=== PATIENT | female | born 1950 | race African-American/Black ===

== ENCOUNTER 2018-03-13 09:52 | Day surgery (SDC) | payer MEDICARE ==
[~2018-03-13 09:52] MED LIST: TETRACAINE 0.5% OD PRN
--- NOTE | 2018-03-13 10:33 | Anesthesia Day of Surgery ---
Anesthesia Day of Surgery - Day of Surgery Patient Examined: Yes Patient H&P Reviewed: Yes Patient is NPO: Yes Beta Blockers: Yes
--- NOTE | 2018-03-13 10:33 | Anesthesia Consultation ---
Anesthesia Consult and Med Hx Date of service: 03/13/18 - Airway Anesthetic Teeth Evaluation: Poor, Dentures ROM Head & Neck: Adequate Mental/Hyoid Distance: Adequate Mallampati Class: Class II Intubation Access Assessment: Probably Good - Pulmonary Exam CTA: Yes - Cardiac Exam Cardiac Exam: RRR - Pre-Operative Health Status ASA Pre-Surgery Classification: ASA2 Proposed Anesthetic Plan: MAC - Pulmonary Hx Smoking: No Hx Asthma: No Hx Respiratory Symptoms: No SOB: No - Cardiovascular System Hx Hypertension: Yes - Central Nervous System Hx Seizures: No CVA: No - Endocrine Hx Renal Disease: No - Other Systems Hx Alcohol Use: No Hx Cancer: No
[2018-03-13] MEDS: VIGAMOX OD SCH ×3 (10:37→10:51)
[2018-03-13] MEDS: AK-Dilate OD SCH ×3 (10:38→10:51)
[2018-03-13] MEDS: MYDRIACYL OD SCH ×3 (10:38→10:51)
[2018-03-13] MEDS ORDERED: VERSED ONE (11:19)
--- NOTE | 2018-03-13 11:40 | Operative Report ---
Operative Report Operative Report: PATIENT'S NAME: DATE OF : DATE OF SURGERY: 03/13/2018 PREOPERATIVE DIAGNOSIS: Cataract right eye POSTOPERATIVE DIAGNOSIS: Same OPERATIVE PROCEDURE: Phacoemulsification with intraocular lens implantation, right eye SURGEON: Lorena Enriquez M.D. STOCK GRADER SURGEON: Cleve Lens: AO60 18.5 D ANESTHESIA: Monitored anesthesia care in combination with topical and intracameral anesthesia because of the established specific risk of reflux, arrhythmias, or anxiety attacks associated with ocular manipulation, as well as the difficulty of the estimator and drafter supervisor to manage such potentially catastrophic events while simultaneously attempting to complete the surgical procedure and was deemed necessary for the patient's safety to have an Materials Associate present during the procedure whenever possible. An Materials Associate was utilized to regulate the intravenous sedation of the patient so the patient was cooperative yet not asleep in order for the patient to successfully maintain fixation of the eye on the operating light of the microscope. COMPLICATIONS: o surgical complications No blood loss. ALLERGIES: Sulfa trimethoprim PROGNOSIS: Excellent INDICATIONS FOR SURGERY: The patient is undergoing surgery in the hopes of eliminating or improving these visual difficulties. PROCEDURE: After arriving at the surgery center, the patient was given topical anesthetic and dilating drops, as noted in the record. The patient was then taken into the operating room and given more anesthetic drops. The eyelids , lashes, and lid margins were scrubbed with Betadine solution, and the patient was draped. The Nurse Materials Associate administered IV sedation and monitored the patient during the procedure. The eye was then fixated with a 0.12, and a stab incision was made in the peripheral clear cornea into the anterior chamber. This was made on my left side. Viscoelastic was next used to fill the anterior chamber. The eye was once again fixated with the 0.12 forceps and a keratome was used make an incision in clear cornea peripherally on my right hand side temporally. The capsule forceps were used to open the central anterior capsule and then make a continuous round capsulotomy. Hydrodissection was carried out utilizing a cannula and balanced salt solution to delineate the cortical material from the capsule and the nucleus from the cortical material. The phaco tip was introduced into the eye and used to remove the anterior cortical material in the area of the capsulotomy. Then the phaco tip was buried into the nucleus, and a chopping instrument was introduced into the eye and used to provide countertraction in the nucleus between this instrument and the phaco tip fracturing the nucleus. This procedure was repeated multiple times, providing multiple small segments of the lens, and then the phaco tip was used to remove each of these segments. An I/A tip was then used to remove the remaining cortex. The anterior chamber was refilled with viscoelastic. An one-piece, acrylic intraocular lens was then placed into an inserting cartridge. The tip of the inserting cartridge was introduced into the keratome incision and into the anterior chamber. The implant was gently advanced through the cartridge and into the eye, where it unfolded, and both haptics were placed in the capsular bag, where it centered nicely and appeared to be well fixated. After placement of the intraocular lens, the I~and~A handpiece was placed back into the eye and used to remove the viscoelastic, including viscoelastic that was behind the optic of the intraocular lens. The anterior chamber was then filled with balanced salt solution, and hydration of the wound was used to cause swelling of the wound and more appropriate watertight closure. When the wound was found to be firm, the patient was asked to comment on how bright the light was. If there was no light perception at all or if the light was substantially dimmer than during the rest of the surgery, the amount of fluid in the eye was decompressed to lower the intraocular pressure until the patient could see the bright light again. This was done to avoid any damage or decreased blood flow to the optic nerve. MEDICATIONS APPLIED AT END OF SURGERY: One drop of Pred Forte and Vigamox The patient was given a shield to wear at night and was instructed not to rub or push on the eye. DISCHARGE SUMMARY: The patient was released in stable condition. The patient and those with the patient were given a written sheet of postoperative instructions and counseling on any abnormal laboratory studies. The patient is to see us tomorrow for follow-up in the office and is to call immediately for any difficulties. Lorena Enriquez M.D. Date
--- NOTE | 2018-03-13 11:41 | Short Stay Summary ---
Short Stay Documentation Date of service: 03/13/18 - History H&P: obtained from office - Allergies and Medications Current Medications: Allergies sulfamethoxazole [From Bactrim] Allergy (Verified 03/12/18 10:33) Unknown trimethoprim [From Bactrim] Allergy (Verified 03/12/18 10:33) Unknown Home Medications Medication Instructions Recorded Confirmed Last Taken Type Atenolol [Tenormin] 25 mg PO DAILY 03/12/18 03/13/18 03/13/18 08:00 History Diclofenac Sodium 75 mg PO BID 03/12/18 03/13/18 03/12/18 17:00 History Latanoprost 0.005% 1 drop OP DAILY 03/12/18 03/13/18 03/12/18 09:00 History Losartan Potassium 50 mg PO DAILY 03/12/18 03/13/18 03/13/18 08:00 History Lovastatin [Altoprev] 40 mg PO DAILY 03/12/18 03/13/18 03/12/18 12:00 History Omeprazole 40 mg PO DAILY 03/12/18 03/13/18 03/12/18 09:00 History Ranitidine HCl [Acid Cake Puncher] 150 mg PO DAILY 03/12/18 03/13/18 03/12/18 09:00 History Active Medications Moxifloxacin HCl (Vigamox) 1 drops OD Q5MIN [facility] Stop: 03/13/18 17:00 Last Admin: 03/13/18 10:51 Dose: 1 drops Phenylephrine HCl (Ak-Dilate) 1 drops OD Q5MIN [facility] Stop: 03/13/18 17:00 Last Admin: 03/13/18 10:51 Dose: 1 drops Prednisolone Acetate (Pred Forte 1%) 1 drops OD QID [facility] Tetracaine HCl (Tetracaine 0.5%) 1 drops OD Q5M PRN PRN Reason: Anesthesia Stop: 03/13/18 17:00 Last Admin: 03/13/18 10:37 Dose: 1 drops Tropicamide (Mydriacyl) 1 drops OD Q5MIN [facility] Stop: 03/13/18 17:00 Last Admin: 03/13/18 10:51 Dose: 1 drops - Brief post op/procedure progress note Date of procedure: 03/13/18 Pre-op diagnosis: nucleosclerotic cataract right eye Post-op diagnosis: same Procedure: Phacoemulsification with intraocular lens insertion right eye Anesthesia: MAC, local Surgeon: KVNG FLOYD Estimated blood loss: none Pathology: none Condition: stable - Disposition Condition at discharge: Good Disposition: DC-01 TO HOME OR SELFCARE - Discharge Diagnoses (1) Nuclear sclerosis of right eye Status: Resolved Short Stay Discharge Plan Follow up with: OLIVER TRAMMELL MD [Primary Care Provider] - 7 Days
--- NOTE | 2018-03-13 12:37 | Post Anesthesia Evaluation ---
- Post Anesthesia Evaluation Patient Participated: Yes Airway Patent: Yes Stable Respiratory Function: Yes Nausea/Vomiting: No Temp > 96.8F: Yes Pain Manageable: Yes Adequeate Hydration: Yes Anesthesia Complications: No
[2018-03-13] MEDS ORDERED: PRED FORTE 1% OD SCH (14:00)
[2018-03-13 15:18] VITALS: BP 126/86
== END 2018-03-13 09:53 | disposition home or self-care (01) ==
LOC: OR 09:52
DX: H25.11 Age-related nuclear cataract, right eye (principal); E78.00 Pure hypercholesterolemia, unspecified; I10 Essential (primary) hypertension; K21.9 Gastro-esophageal reflux disease without esophagitis; Z98.890 Other specified postprocedural states; Z98.42 Cataract extraction status, left eye; Z98.41 Cataract extraction status, right eye; Z88.1 Allergy status to other antibiotic agents; Z88.8 Allergy status to other drugs, medicaments and biological substances; Z79.899 Other long term (current) drug therapy
CPT/HCPCS: 66984; J2250; V2632

== ENCOUNTER 2018-04-03 06:09 | Day surgery (SDC) | payer MEDICARE ==
[~2018-04-03 06:09] MED LIST changes: -TETRACAINE 0.5% OD PRN; +TETRACAINE 0.5% OS PRN
[2018-04-03] MEDS: MYDRIACYL OS SCH ×3 (06:50→07:00)
[2018-04-03] MEDS: VIGAMOX OS SCH ×3 (06:50→07:00)
[2018-04-03] MEDS: AK-Dilate OS SCH ×3 (06:50→07:00)
--- NOTE | 2018-04-03 07:54 | Anesthesia Consultation ---
Anesthesia Consult and Med Hx Date of service: 04/03/18 - Airway Anesthetic Teeth Evaluation: Dentures ROM Head & Neck: Adequate Mental/Hyoid Distance: Adequate Mallampati Class: Class II - Pulmonary Exam CTA: Yes - Cardiac Exam Cardiac Exam: RRR - Pre-Operative Health Status ASA Pre-Surgery Classification: ASA2 Proposed Anesthetic Plan: MAC - Pulmonary Hx Smoking: No Hx Asthma: No Hx Respiratory Symptoms: No SOB: No Hx Sleep Apnea: No - Cardiovascular System Hx Hypertension: Yes Hx Heart Attack/AMI: No - Central Nervous System CVA: No - Gastrointestinal Hx Gastroesophageal Reflux Disease: Yes (asymptomatic today) - Endocrine Hx Renal Disease: No Hx Liver Disease: No Hx Insulin Dependent Diabetes: No Hx Thyroid Disease: No
--- NOTE | 2018-04-03 07:54 | Anesthesia Day of Surgery ---
Anesthesia Day of Surgery - Day of Surgery Patient Examined: Yes Patient H&P Reviewed: Yes Patient is NPO: Yes Beta Blockers: No (last took atenolol 04/02 0800)
[2018-04-03] MEDS ORDERED: SUBLIMAZE ONE (08:04)
[2018-04-03] MEDS ORDERED: VERSED ONE (08:05)
[2018-04-03] MEDS ORDERED: PRED FORTE 1% ONE (09:45)
[2018-04-03] MEDS ORDERED: PRED FORTE 1% OS SCH (10:00)
[2018-04-03] MEDS ORDERED: DIAMOX ONE (10:00)
[2018-04-03] MEDS ORDERED: DIAMOX PO NR (10:00)
--- NOTE | 2018-04-03 10:02 | Operative Report ---
Operative Report Operative Report: PATIENT'S NAME: DATE OF : DATE OF SURGERY: 04/03/2018 PREOPERATIVE DIAGNOSIS: Cataract left eye POSTOPERATIVE DIAGNOSIS: Same OPERATIVE PROCEDURE: Phacoemulsification with intraocular lens implantation, left eye SURGEON: Lorena Enriquez M.D. CUSTOMER PROFESSIONAL SURGEON: Cleve Lens: A060 18.5 D ANESTHESIA: Monitored anesthesia care in combination with topical and intracameral anesthesia because of the established specific risk of reflux, arrhythmias, or anxiety attacks associated with ocular manipulation, as well as the difficulty of the eyeglass assembler to manage such potentially catastrophic events while simultaneously attempting to complete the surgical procedure and was deemed necessary for the patient's safety to have an Decision Support Manager present during the procedure whenever possible. An Decision Support Manager was utilized to regulate the intravenous sedation of the patient so the patient was cooperative yet not asleep in order for the patient to successfully maintain fixation of the eye on the operating light of the microscope. COMPLICATIONS: No surgical complications No blood loss. ALLERGIES: No known drug allergies PROGNOSIS: Excellent INDICATIONS FOR SURGERY: The patient is undergoing surgery in the hopes of eliminating or improving these visual difficulties. PROCEDURE: After arriving at the surgery center, the patient was given topical anesthetic and dilating drops, as noted in the record. The patient was then taken into the operating room and given more anesthetic drops. The eyelids , lashes, and lid margins were scrubbed with Betadine solution, and the patient was draped. The Nurse Decision Support Manager administered IV sedation and monitored the patient during the procedure. The eye was then fixated with a 0.12, and a stab incision was made in the peripheral clear cornea into the anterior chamber. This was made on my left side. Viscoelastic was next used to fill the anterior chamber. The eye was once again fixated with the 0.12 forceps and a keratome was used make an incision in clear cornea peripherally on my right hand side temporally. The capsule forceps were used to open the central anterior capsule and then make a continuous round capsulotomy. Hydrodissection was carried out utilizing a cannula and balanced salt solution to delineate the cortical material from the capsule and the nucleus from the cortical material. The phaco tip was introduced into the eye and used to remove the anterior cortical material in the area of the capsulotomy. Then the phaco tip was buried into the nucleus, and a chopping instrument was introduced into the eye and used to provide countertraction in the nucleus between this instrument and the phaco tip fracturing the nucleus. This procedure was repeated multiple times, providing multiple small segments of the lens, and then the phaco tip was used to remove each of these segments. An I/A tip was then used to remove the remaining cortex. The anterior chamber was refilled with viscoelastic. An one-piece, acrylic intraocular lens was then placed into an inserting cartridge. The tip of the inserting cartridge was introduced into the keratome incision and into the anterior chamber. The implant was gently advanced through the cartridge and into the eye, where it unfolded, and both haptics were placed in the capsular bag, where it centered nicely and appeared to be well fixated. After placement of the intraocular lens, the I~and~A handpiece was placed back into the eye and used to remove the viscoelastic, including viscoelastic that was behind the optic of the intraocular lens. The anterior chamber was then filled with balanced salt solution, and hydration of the wound was used to cause swelling of the wound and more appropriate watertight closure. When the wound was found to be firm, the patient was asked to comment on how bright the light was. If there was no light perception at all or if the light was substantially dimmer than during the rest of the surgery, the amount of fluid in the eye was decompressed to lower the intraocular pressure until the patient could see the bright light again. This was done to avoid any damage or decreased blood flow to the optic nerve. MEDICATIONS APPLIED AT END OF SURGERY: One drop of Pred Forte and Vigamox The patient was given a shield to wear at night and was instructed not to rub or push on the eye. DISCHARGE SUMMARY: The patient was released in stable condition. The patient and those with the patient were given a written sheet of postoperative instructions and counseling on any abnormal laboratory studies. The patient is to see us tomorrow for follow-up in the office and is to call immediately for any difficulties. Lorena Enriquez M.D. Date
--- NOTE | 2018-04-03 10:03 | Short Stay Summary ---
Short Stay Documentation Date of service: 04/03/18 - History H&P: obtained from office - Allergies and Medications Current Medications: Allergies No Known Drug Allergies Allergy (Verified 04/03/18 07:26) Unknown Home Medications Medication Instructions Recorded Confirmed Last Taken Type Atenolol [Tenormin] 25 mg PO DAILY 03/12/18 03/31/18 04/02/18 History Diclofenac Sodium 75 mg PO BID 03/12/18 03/31/18 03/12/18 17:00 History Latanoprost 0.005% 1 drop OP DAILY 03/12/18 04/03/18 04/03/18 05:30 History Losartan Potassium 50 mg PO DAILY 03/12/18 04/03/18 04/03/18 05:30 History Lovastatin [Altoprev] 40 mg PO DAILY 03/12/18 03/31/18 04/02/18 History Omeprazole 40 mg PO QDAY 03/12/18 04/03/18 04/02/18 History Ranitidine HCl [Acid Technician Trainee] 150 mg PO QAM 03/12/18 04/03/18 04/02/18 History Aspirin [Adult Aspirin] 81 mg PO DAILY 03/26/18 03/31/18 04/02/18 History Multivit-Min/FA/Lycopen/Lutein 1 each PO DAILY 03/26/18 03/31/18 04/02/18 History [Centrum Silver Tablet] Active Medications Acetazolamide (Diamox) 500 mg PO ONCE NR Stop: 04/03/18 12:30 Last Admin: 04/03/18 09:45 Dose: 500 mg Moxifloxacin HCl (Vigamox) 1 drops OS Q5MIN [facility] Stop: 04/05/18 06:01 Last Admin: 04/03/18 07:00 Dose: 1 drops Phenylephrine HCl (Ak-Dilate) 1 drops OS Q5MIN [facility] Stop: 04/05/18 06:01 Last Admin: 04/03/18 07:00 Dose: 1 drops Prednisolone Acetate (Pred Forte 1%) 1 drops OS QID [facility] Last Admin: 04/03/18 09:45 Dose: 1 drops Tetracaine HCl (Tetracaine 0.5%) 1 drops OS Q5M PRN PRN Reason: ANALGESIA Last Admin: 04/03/18 06:50 Dose: 1 drops Tropicamide (Mydriacyl) 1 drops OS Q5MIN [facility] Stop: 04/05/18 06:01 Last Admin: 04/03/18 07:00 Dose: 1 drops - Brief post op/procedure progress note Date of procedure: 04/03/18 Pre-op diagnosis: nuclear sclerotic cataract left eye Post-op diagnosis: same Procedure: Phacoemulsification with intraocular lens insertion left eye Anesthesia: MAC, local Surgeon: KVNG FLOYD Estimated blood loss: none Pathology: none Condition: stable - Disposition Condition at discharge: Good Disposition: DC-01 TO HOME OR SELFCARE - Discharge Diagnoses (1) Cataract, nuclear sclerotic, left eye Status: Resolved Short Stay Discharge Plan Follow up with: PRIMARY CARE, [Primary Care Provider] - 7 Days
[2018-04-03 15:19] VITALS: BP 136/90
== END 2018-04-03 10:50 | disposition home or self-care (01) ==
LOC: OR 06:09
DX: H25.12 Age-related nuclear cataract, left eye (principal); E78.00 Pure hypercholesterolemia, unspecified; I10 Essential (primary) hypertension; K21.9 Gastro-esophageal reflux disease without esophagitis; M19.90 Unspecified osteoarthritis, unspecified site; Z98.890 Other specified postprocedural states; Z79.82 Long term (current) use of aspirin; Z79.899 Other long term (current) drug therapy; Z98.42 Cataract extraction status, left eye
CPT/HCPCS: 66984; J2250; J3010; V2632